=== PATIENT | female | born 1990 | race Two or more races ===

== ENCOUNTER 2024-02-20 09:02 | Emergency (ER) | payer MEDICAID, OTHER ==
[~2024-02-20] VITALS: Ht 149.9 cm; Wt 61.7 kg
[~2024-02-20 09:02] MED LIST: no current meds
[2024-02-20] MEDS ORDERED: KETOROLAC TROMETHAMINE 15 MG/ML VIAL ONE (09:36)
[2024-02-20] MEDS: KETOROLAC TROMETHAMINE 15 MG/ML VIAL IV ONE (09:38)
[2024-02-20 09:59] LABS: BASOPHILS % (AUTO) 0.4 % (0.0-2.0); EOSINOPHILS # (AUTO) 0.1 K/uL (0.0-0.7); EOSINOPHILS % (AUTO) 0.8 % (0.0-6.0); HEMATOCRIT 36 % (33-45); LYMPHOCYTES # (AUTO) 2.6 K/uL (0.8-4.8); LYMPHOCYTES % (AUTO) 26.5 % (20.0-44.0); MEAN CORPUSCULAR HEMOGLOBIN 29 PG (26.0-33.0); MEAN CORPUSCULAR HGB CONC 33 g/dl (31.0-36.0); MEAN CORPUSCULAR VOLUME 88 fL (82-100); MONOCYTES # (AUTO) 0.6 K/uL (0.1-1.30); NEUTROPHILS # (AUTO) 6.4 K/uL (1.8-8.9); NEUTROPHILS % (AUTO) 66.3 % (43.0-81.0); PLATELET COUNT (AUTO) 314 K/uL (150-450); RED BLOOD CELL COUNT(AUTO) 4.14 MIL/uL (4.0-5.2); RED CELL DISTRIBUTION WIDTH 13.8 % (11.5-15.0); WHITE BLOOD COUNT (AUTO) 9.7 K/uL (4.3-11.0)
[2024-02-20 10:06] LABS: CREATININE 0.7 mg/dL (0.6-1.3); POTASSIUM 3.9 mmol/L (3.5-5.1)
[2024-02-20 10:11] LABS: PREGNANCY TEST URINE QUAL NEGATIVE (NEGATIVE)
[2024-02-20] MEDS ORDERED: IOHEXOL-300 100 ML VIAL IV ONE (10:15)
[2024-02-20] MEDS: VANCOMYCIN 1 GM in IV D5W 250 ML IV ONE (11:47)
[2024-02-20] MEDS: CEFEPIME 1 GM in IV D5W 50 ML IV ONE (11:47)
[2024-02-20] MEDS ORDERED: MORPHINE SULFATE INJ 4 MG/ML DISP.SYRIN ONE ×2 (11:50→12:52)
[2024-02-20] MEDS: MORPHINE SULFATE INJ 2 MG/ML DISP.SYRIN IV ONE ×2 (11:50→12:56)
[2024-02-20] MEDS ORDERED: HYDR-3980 PO (12:30)
[2024-02-20] MEDS ORDERED: KETO10TA2 PO (12:30)
[2024-02-20] MEDS ORDERED: SULF1TAB48 PO (12:30)
[2024-02-20 14:07] VITALS: BP 120/78; TEMP 98.4; O2SAT 98
== END 2024-02-20 14:08 | disposition home or self-care (01) ==
LOC: ER 09:11
DX: L02.31 Cutaneous abscess of buttock (principal)
CPT/HCPCS: 99285; 96365; 73701; 96375; 96368; 85025; 80048; 84703; 36415; 96376; J2270 ×2; J3370; J7060; J0692; Q9967; J1885